=== PATIENT | male | born 1985 | race African-American/Black ===

== ENCOUNTER 2016-06-21 21:13 | Emergency (ER) | payer OTHER ==
[~2016-06-21] VITALS: Ht 177.8 cm; Wt 83.9 kg
[~2016-06-21 21:13] MED LIST: NAPR500T PO; UNABLE MC
[2016-06-21 22:12] VITALS: BP 138/86
--- NOTE | 2016-06-21 22:51 | PHYS DOC ---
Past Medical History Past Medical History: Anxiety, Depression, Schizophrenia, Other Additional Past Medical Histor: HEMMORHOIDS Past Surgical History: Other Additional Past Surgical Histo: BIRTHMARK REMOVED FROM FOREHEAD Alcohol Use: Rarely Drug Use: None Adult General Chief Complaint Chief Complaint: KNEE INJURY HPI HPI Patient is a 30 year old male with history of schizophrenia, anxiety, who presents with left anterior knee pain that began today after he twisted his knee. Patient denies falling. Review of Systems Review of Systems Constitutional: Denies fever or chills [] Eyes: Denies change in visual acuity, redness, or eye pain [] HENT: Denies nasal congestion or sore throat [] Musculoskeletal: left anterior knee pain Integument: Denies rash or skin lesions [] Neurologic: Denies headache, focal weakness or sensory changes [] Endocrine: Denies polyuria or polydipsia [] Allergies Allergies Allergies Coded Allergies Type Severity Reaction Last Updated Verified No Known Drug Allergies 09/22/13 No Physical Exam Physical Exam Constitutional: Well developed, well nourished, no acute distress, non-toxic appearance. [] HENT: Normocephalic, atraumatic, bilateral external ears normal, oropharynx moist, no oral exudates, nose normal. [] Eyes: PERRLA, EOMI, conjunctiva normal, no discharge. [] Skin: Warm, dry, no erythema, no rash. [] Back: No tenderness, no CVA tenderness. [] Extremities: Left knee with no obvious deformity. Tenderness diffusely on anterior aspect of the knee. Full range of motion to the left knee, negative Shirley sign, negative Keira sign, negative anterior-posterior drawer sign. + 2 left pedal pulse. Cap refill less than 2 seconds and left lower extremity. Sensation intact to the left lower extremity. Neurologic: Alert and oriented X 3, normal motor function, normal sensory function, no focal deficits noted. [] Psychologic: Affect normal, judgement normal, mood normal. [] Current Patient Data Vital Signs Vital Signs Date Time Temp Pulse Resp B/P (MAP) Pulse Ox O2 Delivery O2 Flow Rate FiO2 06/21/16 22:12 98.1 107 14 97 Room Air 98.1 EKG EKG [] Radiology/Procedures Radiology/Procedures [] Course & Med Decision Making Course & Med Decision Making Pertinent Labs and Imaging studies reviewed. (See chart for details) Patient is in the ED with left knee pain after twisting it. Left knee x-rays interpreted by are negative for any acute findings. Patient was placed in the left knee immobilizer by the Ed RN, neurovascular exam done by me is normal. Cap refill<2 seconds. Ice elevation recommended. Follow-up orthopedic doctor in one week if pain continues. Dragon Disclaimer Dragon Disclaimer This electronic medical record was generated, in whole or in part, using a voice recognition dictation system. Departure Departure Impression: Primary Impression: Left knee sprain Disposition: HOME, SELF-CARE Condition: STABLE Referrals: NO PCP (PCP) ZAKIA BERMUDEZ II, MD follow up with the orthopedic doctor in one week Patient Instructions: Knee Sprain, [id number] Additional Instructions: You were seen for left knee sprain. Wear the immobilizer as needed and tolerated. Ice and elevate the extremity. Take [id number] Tylenol Motrin for pain. Follow-up with the provided orthopedic doctor in one week if pain continues. Problem Qualifiers Primary Impression: Left knee sprain Encounter type: initial encounter Involved ligament of knee: unspecified ligament Qualified Codes: S83.92XA - Sprain of unspecified site of left knee, initial encounter NOEMY ALONZO MECH[employer]ICAL SYSTEMS DESIGN ENGINEER June 21, 2016 22:51
--- NOTE | 2016-06-22 07:39 | RAD ---
Left knee, 3 views, 06/21/2016: History: Twisting knee injury There is a thin, elongated calcific density along the medial margin of the medial femoral condyle. 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 A recent avulsion fracture is less likely. Clinical correlation with the site of the patient's current pain is suggested. No other fracture or dislocation is identified. No significant joint effusion is seen. IMPRESSION: Edwige-Stieda lesion
== END 2016-06-21 22:58 | disposition home or self-care (01) ==
LOC: ER 21:13
DX: S83.92XA Sprain of unspecified site of left knee, initial encounter (principal); F20.9 Schizophrenia, unspecified; X50.9XXA Other and unspecified overexertion or strenuous movements or postures, initial encounter; Y93.89 Activity, other specified; Y99.8 Other external cause status; Y92.89 Other specified places as the place of occurrence of the external cause
CPT/HCPCS: 29505; 73562; 99284-25

== ENCOUNTER 2016-07-04 11:42 | Emergency (ER) | payer OTHER ==
[~2016-07-04] VITALS: Ht 177.8 cm; Wt 83.9 kg
[2016-07-04 11:51] VITALS: BP 158/86
--- NOTE | 2016-07-04 12:21 | PHYS DOC ---
Past Medical History Past Medical History: Anxiety, Depression, Schizophrenia, Other Additional Past Medical Histor: HEMMORHOIDS Past Surgical History: Other Additional Past Surgical Histo: BIRTHMARK REMOVED FROM FOREHEAD Alcohol Use: Rarely Drug Use: None Adult General Chief Complaint Chief Complaint: KNEE INJURY [facility] HPI Patient is a 30 year old male presents emergency department stating he was seen here approximately week week and half ago for left knee pain and discomfort. He had x-rays completed with no abnormalities noted. He was placed in a knee immobilizer with recommendations to follow-up with Dr. Bermudez in the next week if he continued have pain and discomfort. Patient returns here to the emergency department stating that he has decreased range of motion to the knee where he cannot completely bend it. He denies any numbness or tingling into the foot. He states that he did not know he was provided with orthopedic name and number to follow up with as he thinks he may have lost his discharge instructions. Eyes any injury or trauma to the knee since his last visit. Review of Systems Review of Systems Constitutional: Denies fever or chills [] Eyes: Denies change in visual acuity, redness, or eye pain [] HENT: Denies nasal congestion or sore throat [] Respiratory: Denies cough or shortness of breath [] Cardiovascular: No additional information not addressed in HPI [] GI: Denies abdominal pain, nausea, vomiting, bloody stools or diarrhea [] : Denies dysuria or hematuria [] Musculoskeletal: Denies back pain. C/o left knee pain Integument: Denies rash or skin lesions [] Neurologic: Denies headache, focal weakness or sensory changes [] Endocrine: Denies polyuria or polydipsia [] Allergies Allergies Allergies Coded Allergies Type Severity Reaction Last Updated Verified No Known Drug Allergies 09/22/13 No Physical Exam Physical Exam Constitutional: Well developed, well nourished, no acute distress, non-toxic appearance. [] HENT: Normocephalic, atraumatic, bilateral external ears normal, oropharynx moist, no oral exudates, nose normal. [] Eyes: PERRLA, EOMI, conjunctiva normal, no discharge. [] Neck: Normal range of motion, no tenderness, supple, no stridor. [] Cardiovascular:Heart rate regular rhythm Lungs & Thorax: no respiratory distress noted Skin: Warm, dry, no erythema, no rash. [] Back: No tenderness Extremities: Medial left knee tenderness, no swelling or discoloration noted. No cyanosis, no clubbing, ROM intact, no edema. Patient with decreased range of motion noted when bending the knee. Peripheral pulses 2+ cap refill brisk less than 2 seconds. Neurologic: Alert and oriented X 3, normal motor function, normal sensory function, no focal deficits noted. [] Psychologic: Affect normal, judgement normal, mood normal. [] Current Patient Data Vital Signs Vital Signs Date Time Temp Pulse Resp B/P (MAP) Pulse Ox O2 Delivery O2 Flow Rate FiO2 07/04/16 11:51 98.2 100 18 96 Room Air 98.2 EKG EKG [] Radiology/Procedures Radiology/Procedures [] Course & Med Decision Making Course & Med Decision Making Pertinent Labs and Imaging studies reviewed. (See chart for details) Commended patient to continue to wear the knee immobilizer and follow-up with orthopedic. He'll provided with orthopedic name and number to follow up with again. Patient will be discharged home in stable condition signs and symptoms to return back to emergency department as been provided. [] Dragon Disclaimer Dragon Disclaimer This electronic medical record was generated, in whole or in part, using a voice recognition dictation system. Departure Departure Impression: Primary Impression: Knee pain, left Disposition: 01 HOME, SELF-CARE Condition: STABLE Referrals: NO PCP (PCP) ZKAIA BERMUDEZ II, MD Patient Instructions: Knee Immobilizer, [id number], Knee Pain, [id number] Additional Instructions: Activity as tolerated. Wear the knee immobilizer until you follow-up with orthopedic. Tylenol or ibuprofen for pain and discomfort. Return back to emergency prior signs symptoms of become worse. Follow-up with orthopedic in the next week. JULISSA PHILIP APRN July 04, 2016 12:21
== END 2016-07-04 12:27 | disposition home or self-care (01) ==
LOC: ER 12:26
DX: M25.562 Pain in left knee (principal); F20.9 Schizophrenia, unspecified
CPT/HCPCS: 99281

== ENCOUNTER 2016-12-28 08:19 | Emergency (ER) | payer OTHER ==
[~2016-12-28] VITALS: Ht 177.8 cm; Wt 68.0 kg
[2016-12-28 08:19] VITALS: BP 140/86
--- NOTE | 2016-12-28 09:11 | PHYS DOC ---
Past Medical History Past Medical History: Anxiety, Depression, Schizophrenia, Other Additional Past Medical Histor: HEMMORHOIDS Past Surgical History: Other Additional Past Surgical Histo: BIRTHMARK REMOVED FROM FOREHEAD Alcohol Use: Rarely Drug Use: None Adult General Chief Complaint Chief Complaint: KNEE INJURY HPI HPI Patient is a 31 year old female with history of schizophrenia, anxiety, who presents with 7 out of 10 left anterior knee pain that began yesterday. Patient states he dislocated his left knee and relocated it stepping out in a car wash. Review of Systems Review of Systems Constitutional: Denies fever or chills [] Musculoskeletal: Left knee pain Integument: Denies rash or skin lesions [] Neurologic: Denies headache, focal weakness or sensory changes [] All other systems were reviewed and found to be within normal limits, except as documented in this note. Allergies Allergies Allergies Coded Allergies Type Severity Reaction Last Updated Verified No Known Drug Allergies 09/22/13 No Physical Exam Physical Exam Constitutional: Well developed, well nourished, no acute distress, non-toxic appearance. [] Skin: Warm, dry, no erythema, no rash. [] Back: No tenderness, no CVA tenderness. [] Extremities: Left knee with no obvious deformity. Tenderness on palpation of the left anterior knee. Full active as well as passive range of motion to the left knee. Patient able to stretch the left lower extremity of with no difficulty. Negative Shirley sign and negative Keira's sign negative anterior -posterior drawer sign. +2 left pedal pulse. Cap refill less than 2 seconds the left lower extremity. Neurologic: Alert and oriented X 3, normal motor function, normal sensory function, no focal deficits noted. [] Psychologic: Affect normal, judgement normal, mood normal. [] Current Patient Data Vital Signs Vital Signs Date Time Temp Pulse Resp B/P (MAP) Pulse Ox O2 Delivery O2 Flow Rate FiO2 12/28/16 08:19 98.0 101 16 95 Room Air 98.0 EKG EKG [] Radiology/Procedures Radiology/Procedures [] Course & Med Decision Making Course & Med Decision Making Pertinent Labs and Imaging studies reviewed. (See chart for details) Patient is in the ED with left knee pain since yesterday. Patient believes he dislocated his knee and put it back in place when he was stepped out of a car wash. Right knee x-rays interpreted by radiologist are negative for any acute findings. Patient provided immobilizer in the ED by the installation tech, neurovascular exam is intact. Ice elevation encouraged. Discharged with naproxen and follow- up with Ortho in one week. Dragon Disclaimer Dragon Disclaimer This electronic medical record was generated, in whole or in part, using a voice recognition dictation system. Departure Departure Impression: Primary Impression: Left knee sprain Disposition: HOME, SELF-CARE Condition: STABLE Referrals: NO PCP (PCP) EDILIA ROSSI MD follow up in one week Patient Instructions: Knee Sprain, [id number] Additional Instructions: You were seen for left knee sprain. We put you in an immobilizer in the ED. Use it as tolerated. Ice and elevate the extremity. Follow-up with the provided orthopedic doctor or your own orthopedic doctor in one week. Scripts Naproxen (NAPROXEN) 500 Mg Tablet.dr 1 TAB PO BID, #20 TAB 0 Refills Prov: NOEMY ALONZO APRN 12/28/16 Problem Qualifiers Primary Impression: Left knee sprain Encounter type: initial encounter Involved ligament of knee: unspecified ligament Qualified Codes: S83.92XA - Sprain of unspecified site of left knee, initial encounter NOEMY ALONZO APRN Dec 28, 2016 09:11
[2016-12-28] MEDS ORDERED: NAPR500T8 PO (09:39)
--- NOTE | 2016-12-28 09:48 | RAD ---
EXAM: Left knee, 4 views HISTORY: Left knee pain. Limited range of motion. Prior dislocation. COMPARISON: 06/21/2016. FINDINGS: There are limitations in positioning given limited extension. Joint spaces and alignment appear preserved. No fractures are identified. 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 There is no joint effusion. IMPRESSION: 1. Limited extension. No acute fracture or joint effusion. 2. 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
== END 2016-12-28 10:15 | disposition home or self-care (01) ==
LOC: ER 08:19
DX: S83.92XA Sprain of unspecified site of left knee, initial encounter (principal); F41.9 Anxiety disorder, unspecified; F32.9 Major depressive disorder, single episode, unspecified; F20.9 Schizophrenia, unspecified; X58.XXXA Exposure to other specified factors, initial encounter; Y93.89 Activity, other specified; Y92.89 Other specified places as the place of occurrence of the external cause; Y99.8 Other external cause status
CPT/HCPCS: 29505; 73564; 99284-25

== ENCOUNTER 2017-06-01 09:13 | Emergency (ER) | payer OTHER | END 2017-06-01 09:48 | disposition home or self-care (01) | LOC: ER 09:13 | DX: K04.7 Periapical abscess without sinus (principal); F20.9 Schizophrenia, unspecified | CPT/HCPCS: 99283 ==

== ENCOUNTER 2017-07-29 14:18 | Emergency (ER) | payer OTHER | END 2017-07-29 15:22 | disposition home or self-care (01) | LOC: ER 15:22 | DX: S02.5XXA Fracture of tooth (traumatic), initial encounter for closed fracture (principal); K02.9 Dental caries, unspecified; F41.9 Anxiety disorder, unspecified; F32.9 Major depressive disorder, single episode, unspecified; F20.9 Schizophrenia, unspecified; X58.XXXA Exposure to other specified factors, initial encounter; Y93.89 Activity, other specified; Y92.89 Other specified places as the place of occurrence of the external cause; Y99.8 Other external cause status | CPT/HCPCS: 99283 ==

== ENCOUNTER 2018-02-09 16:09 | Emergency (ER) | payer OTHER ==
[2017-07-29 14:32] VITALS: BP 145/63
[~2018-02-09 16:09] MED LIST changes: +AMOX500C PO; +NAPR-683 PO; -NAPR500T PO; +NAPR500T8 PO; +PENI500T PO
== END 2018-02-09 16:42 | disposition left against medical advice (07) ==
LOC: ER 16:09
DX: N50.812 Left testicular pain (principal); Z53.21 Procedure and treatment not carried out due to patient leaving prior to being seen by health care provider